=== PATIENT | female | born 1975 | race American Indian/Alaskan Native ===

== ENCOUNTER 2016-10-06 10:41 | Emergency (ER) | payer MEDICAID ==
[2016-10-06] MEDS ORDERED: CATAPRES ONE (11:43)
[2016-10-06] MEDS ORDERED: APRESOLINE PO ONE (18:55)
[2016-10-06 19:37] LABS: Basophils % (Auto) 0.5 % (0.0-1.8); Eosinophils % (Auto) 0.6 % (0.0-4.3); Hematocrit 36.7 % (30.3-42.9); Hemoglobin 11.4 gm/dl (10.1-14.3); Mean Corpuscular HGB Conc 31 % (30-34); Platelet Count 258 K/mm3 (140-440); Red Blood Count 5.38 M/mm3 (3.65-5.03); Red Cell Distribution Width 18.2 % (13.2-15.2); White Blood Count 5.4 K/mm3 (4.5-11.0)
[2016-10-06 19:45] LABS: Mean Corpuscular Hemoglobin 21 pg (28-32); Mean Corpuscular Volume 68 fl (79-97)
[2016-10-06 19:57] LABS: Blood Urea Nitrogen 9 mg/dL (7-17); Calcium 9.3 mg/dL (8.4-10.2); Carbon Dioxide 23 mmol/L (22-30); Chloride 101.8 mmol/L (98-107); Glucose 91 mg/dL (65-100); Potassium 3.7 mmol/L (3.6-5.0); Sodium 139 mmol/L (137-145)
[2016-10-06 20:08] LABS: Anion Gap 18 mmol/L
[2016-10-06] MEDS ORDERED: TYLENOL PO ONE (20:42)
[2016-10-06] MEDS ORDERED: REGLAN IV ONE (20:42)
--- NOTE | 2016-10-06 20:43 | Emergency Department Report ---
ED Headache HPI - General Time Seen by Provider: 10/06/16 20:41 - History of Present Illness Initial Comments: 41-year-old female past medical history hypertension presents with complaint of headache and episode of hypertension at work today. Patient denies any palpitations shortness of breath no nausea no vomiting no blurry vision. Patient states that headache is frontal throbbing pulsatile. Waxing and waning throughout the course of the day gradually not sudden onset. Allergies/Adverse Reactions: Allergies No Known Allergies Allergy (Unverified 07/02/14 10:33) Home Medications: Ambulatory Orders amLODIPine [Norvasc] 5 mg PO DAILY #30 tablet 07/05/14 Acetaminophen [Acetaminophen TAB] 500 mg PO Q6HR PRN #30 tablet 10/06/16 Hydrochlorothiazide [HCTZ] 25 mg PO QDAY #30 tablet 10/06/16 Metoprolol [Lopressor TAB] 12.5 mg PO BID #30 tablet 10/06/16 amLODIPine [Norvasc] 10 mg PO DAILY #30 tab 10/06/16 ED Review of Systems ROS: Stated complaint: Other details as noted in HPI ED Past Medical Hx - Past Medical History Hx Hypertension: Yes Hx Congestive Heart Failure: No Hx Diabetes: No Hx Asthma: No Hx COPD: No - Social History Smoking Status: Never Smoker - Medications Home Medications: Home Medications Medication Instructions Recorded Confirmed Last Taken Type amLODIPine [Norvasc] 5 mg PO DAILY #30 tablet 07/05/14 Unknown Rx Acetaminophen [Acetaminophen TAB] 500 mg PO Q6HR PRN #30 tablet 10/06/16 Unknown Rx Hydrochlorothiazide [HCTZ] 25 mg PO QDAY #30 tablet 10/06/16 Unknown Rx Metoprolol [Lopressor TAB] 12.5 mg PO BID #30 tablet 10/06/16 Unknown Rx amLODIPine [Norvasc] 10 mg PO DAILY #30 tab 10/06/16 Unknown Rx ED Physical Exam - General General appearance: alert, in no apparent distress - Head Head exam: Present: atraumatic, normocephalic - Eye Eye exam: Present: normal appearance, PERRL, EOMI - ENT ENT exam: Present: mucous membranes moist - Neck Neck exam: Present: normal inspection - Respiratory Respiratory exam: Present: normal lung sounds bilaterally. Absent: respiratory distress - Cardiovascular Cardiovascular Exam: Present: regular rate, normal rhythm. Absent: systolic murmur, diastolic murmur, rubs, gallop - GI/Abdominal GI/Abdominal exam: Present: soft, normal bowel sounds - Extremities Exam Extremities exam: Present: normal inspection - Back Exam Back exam: Present: normal inspection - Neurological Exam Neurological exam: Present: alert, oriented X3, CN II-XII intact - Expanded Neurological Exam Expanded Patient oriented to: Present: person, place, time Speech: Present: fluid speech Cranial nerves: EOM's Intact: Normal, Gag Reflex: Normal, Tongue Deviation: Normal, Nystagmus: Normal, Facial Sensation: Normal, Facial Palsy with Forehead Movement: Normal, Facial Palsy without Forehead Movement: Normal Cerebellar function: Finger to Nose: Normal, Heel to Shah: Normal, Romberg: Normal Upper motor neuron: Matthieu Neglect: Normal, Pronator Drift: Normal, Babinski Sign : Normal, Sensory Extinction: Normal Sensory exam: Upper Extremity Light Touch: Normal, Upper Extremity Pin Prick: Normal, Upper Extremity Temperature: Normal, UE 2 Point Discrimination: Normal, Lower Extremity Light Touch: Normal, Lower Extremity Pin Prick: Normal, Lower Extremity Temperature: Normal, LE 2 Point Discrimination: Normal Motor strength exam: RUE: 5, LUE: 5, RLE: 5, LLE: 5 DTR: bicep (R): 3+, bicep (L): 3+, tricep (R): 3+, tricep (L): 3+, knee (R): 3+ , knee (L): 3+, ankle (R): 3+, ankle (L): 3+ Best Eye Response (Ophir): (4) open spontaneously Best Motor Response (Arnaldo): (6) obeys commands Best Verbal Response (Ophir): (5) oriented Arnaldo Total: 15 - Psychiatric Psychiatric exam: Present: normal affect, normal mood - Skin Skin exam: Present: warm, dry, intact, normal color. Absent: rash ED Course Vital Signs 10/06/16 10/06/16 10/06/16 19:57 21:24 21:35 Temperature 98.2 F Pulse Rate 103 H 74 Respiratory 20 18 Rate Blood Pressure 132/90 Blood Pressure 171/99 [Left] O2 Sat by Pulse 100 18 L Oximetry 10/06/16 22:18 Temperature Pulse Rate 70 Respiratory 18 Rate Blood Pressure Blood Pressure 137/91 [Left] O2 Sat by Pulse 99 Oximetry ED Medical Decision Making - Lab Data Result diagrams: 10/06/16 19:23 10/06/16 19:23 - Medical Decision Making A/P: Headache, hypertension 1-BMP, CBC, EKG within normal limits 2-after BP control with hydralazine BP normalized. Patient now asymptomatic patient states the headache is 2 out of 10 compared to 10 out of 10 when she came in. Patient denies any chest pain or shortness of breath no palpitations no nausea no vomiting no blurry vision no paresthesias in upper or lower extremities or face. No signs of facial paresthesias, no slurred speech. Strength 5 out of 5 all extremities upper and lower. 3-I discussed case with Dr. Ragsdale 4-patient states she is not taking any of her blood pressure medications one week, is requesting refill for her hydrochlorothiazide metoprolol and amlodipine. All provide enough for one month and referred patient to primary care. 5-patient given strict instructions by me to report back to the ED if she experiences headache with elevated or significantly lowered blood pressure. I advised her about the symptoms as stated above. Critical care attestation.: If time is entered above; I have spent that time in minutes in the direct care of this critically ill patient, excluding procedure time. ED Disposition Clinical Impression: Headache Qualifiers: Headache type: tension-type Headache chronicity pattern: acute headache Intractability: not intractable Qualified Code(s): G44.209 - Tension-type headache, unspecified, not intractable Hypertension Qualifiers: Hypertension type: other secondary hypertension Qualified Code(s): I15.8 - Other secondary hypertension Disposition: DISCHARGED TO HOME OR SELFCARE Is pt being admited?: No Does the pt Need Aspirin: No Condition: Stable Instructions: Acute Headache (ED), Hypotension (ED), Hypertension (ED) Additional Instructions: I advised patient to call for primary care follow-up as soon as possible Prescriptions: Acetaminophen [Acetaminophen TAB] 500 mg PO Q6HR PRN #30 tablet PRN Reason: Headache amLODIPine [Norvasc] 10 mg PO DAILY #30 tab Hydrochlorothiazide [HCTZ] 25 mg PO QDAY #30 tablet Metoprolol [Lopressor TAB] 12.5 mg PO BID #30 tablet Referrals: PRIMARY CARE, [Primary Care Provider] - 3-5 Days [facility] [Outside] - 3-5 Days BERNIE MOSS MD [Referring] - 3-5 Days Forms: Work/School Release Form(ED) Time of Disposition: 22:20
[2016-10-06] MEDS ORDERED: NACL 0.9% 500 ML 500 ML IV ONE (20:50)
[2016-10-06 22:24] VITALS: BP 132/90
== END 2016-10-06 22:37 | disposition home or self-care (01) ==
LOC: ED 10:41
DX: G44.209 Tension-type headache, unspecified, not intractable (principal); I15.8 Other secondary hypertension
CPT/HCPCS: 36415; 80048; 85025; 93005; 93010; 96361; 96374; 99283; J2765; J7040

== ENCOUNTER 2018-01-27 13:08 | Outpatient (CLI) | payer BC ==
--- NOTE | 2018-02-01 12:37 | Mammography Report ---
Bilateral mammogram: No previous studies available. CAD study utilized. Findings: Predominance of adipose tissue bilaterally. Focal architectural distortion approximate 12:00 position left breast. Asymmetric ill-defined 4 mm density upper outer posterior left breast. No microcalcifications. Normal axilla. Impression: Focal architectural distortion throughout 12:00 position with focal asymmetry outer posterior left breast. Comparison with previous studies is recommended. If previous studies are not available spot mag and sonographic examination advised. BI-RADS CATEGORY: 0 = Needs additional imaging evaluation ACR BI-RADS MAMMOGRAPHIC CODES: 0 = Needs additional imaging evaluation; 1 = Negative; 2 = Benign; 3 = Probably benign; 4 = Suspicious; 5 = Malignant; 6 = Known biopsy-proven malignancy COMMENT: 1. Dense breast tissue, i.e., adenosis, fibrocystic changes, etc., may obscure an underlying neoplasm. 2. Approximately 10% of cancers are not detected with mammography. 3. A negative mammography report should not delay biopsy if a clinically suspicious mass is present. COMMENT: Patient follow-up letters are generated in [employer].
== END 2018-01-27 13:09 | disposition home or self-care (01) ==
LOC: MAMMO 13:08
PROVIDERS: ATTEND Obstetrics & Gynecology
DX: Z12.31 Encounter for screening mammogram for malignant neoplasm of breast (principal)
CPT/HCPCS: 77067

== ENCOUNTER 2018-03-24 08:40 | Emergency (ER) | payer BC ==
[2018-03-24] MEDS ORDERED: APRESOLINE IV ONE (10:25)
[2018-03-24 10:50] LABS: Hemoglobin 14.5 gm/dl (10.1-14.3); Mean Corpuscular HGB Conc 33 % (30-34); Mean Corpuscular Hemoglobin 27 pg (28-32); Mean Corpuscular Volume 81 fl (79-97); Platelet Count 303 K/mm3 (140-440); Red Blood Count 5.46 M/mm3 (3.65-5.03); Red Cell Distribution Width 16.4 % (13.2-15.2)
[2018-03-24 11:10] LABS: BUN/Creatinine Ratio 20; Blood Urea Nitrogen 20 mg/dL (7-17); Calcium 9.4 mg/dL (8.4-10.2); Hemolysis Index 12
[2018-03-24] MEDS ORDERED: TYLENOL #3 PO ONE (11:35)
--- NOTE | 2018-03-24 11:45 | Emergency Department Report ---
HPI - General Chief Complaint: High BP Time Seen by Provider: 03/24/18 10:17 - HPI HPI: The patient is a 26-year-old female who presents for evaluation of headache. The patient has a history of poorly controlled hypertension. The patient reports constant generalized headache for the past 5-6 days, currently 9/10 in severity, throbbing in quality, exacerbated with position changes and while sounds. The patient denies fever, head injury, neck pain, neck stiffness, vision or hearing changes, smell or taste changes, paresthesias, facial drooping , slurred speech, seizure-like activity, urine or bowel incontinence or retention, or other focal neurological deficit. ED Past Medical Hx - Past Medical History Hx Hypertension: Yes Hx Congestive Heart Failure: No Hx Diabetes: No Hx Asthma: No Hx COPD: No - Surgical History Past Surgical History?: No - Social History Smoking Status: Never Smoker Substance Use Type: None - Medications Home Medications: Home Medications Medication Instructions Recorded Confirmed Last Taken Type Mtyzx-Vzyqy-Owfb 10-160-12.5MG 1 tab PO DAILY 03/24/18 03/24/18 03/24/18 07:45 History Lisinopril [Zestril TAB] 5 mg PO QDAY #31 tablet 03/24/18 Unknown Rx ED Review of Systems ROS: Stated complaint: HYPERTENSIVE Other details as noted in HPI Constitutional: denies: fever ENT: denies: throat or neck pain Respiratory: denies: cough, shortness of breath Cardiovascular: denies: chest pain Endocrine: denies unexplained weight loss or gain Gastrointestinal: denies: abdominal pain, nausea Genitourinary: denies: dysuria Musculoskeletal: denies: leg swelling Skin: denies: rash Neurological: reports headache Hematological/Lymphatic: denies: easy bleeding or easy bruising Psych: denies sadness or hopelessness Physical Exam - Physical Exam Vital Signs: Vital Signs 03/24/18 03/24/18 03/24/18 08:49 08:53 10:16 Temperature 98.6 F Pulse Rate 78 Respiratory 16 Rate Blood Pressure 183/122 Blood Pressure 186/116 [Left] O2 Sat by Pulse 100 100 Oximetry 03/24/18 03/24/18 03/24/18 10:21 10:30 10:46 Temperature Pulse Rate 82 Respiratory 18 Rate Blood Pressure Blood Pressure 177/107 [Left] O2 Sat by Pulse 98 97 96 Oximetry 03/24/18 11:00 Temperature Pulse Rate Respiratory Rate Blood Pressure 162/93 Blood Pressure [Left] O2 Sat by Pulse 98 Oximetry Physical Exam: General: well-nourished, well-developed, no acute distress Head: Normocephalic, atraumatic Eyes: normal sclera ENT: Mucous membranes are pink and moist Neck: trachea midline, neck supple, No neck stiffness, no cervical adenopathy Respiratory: Breath sounds equal bilaterally, no wheezing, rales, or rhonchi Cardio: S1 and S2 present, no murmurs, rubs, gallops, capillary refill is brisk Abdomen: Normoactive bowel sounds, soft abdomen, no rigidity, no guarding or rebound tenderness Chest WALL/Back: No tenderness to palpation of the chest wall, no CVA tenderness with percussion Musc: No pitting edema Skin: No rash Neuro: alert oriented x4, normal cognition, speech normal, PERRL, EOM intact, no facial drooping, no uvula or tongue deviation on protrusion, no deficit with rotation of neck or shoulder shrug, no obvious gross motor deficit in the upper or lower extremities with flexion or extension at the shoulder, elbow, wrist, hip, knee, or ankle bilaterally, no obvious gross sensation deficit to crude touch or 2 pt discrimination, 2+ symmetric reflexes on DTR testing, no coordination deficit with sntofr-eb-ancy or fkdu-le-ppsh testing, Babinski downgoing, romberg negative, patient able to to ambulate without abnormal gait Psych: Normal affect ED Course Vital Signs 03/24/18 03/24/18 03/24/18 08:49 08:53 10:16 Temperature 98.6 F Pulse Rate 78 Respiratory 16 Rate Blood Pressure 183/122 Blood Pressure 186/116 [Left] O2 Sat by Pulse 100 100 Oximetry 03/24/18 03/24/18 03/24/18 10:21 10:30 10:46 Temperature Pulse Rate 82 Respiratory 18 Rate Blood Pressure Blood Pressure 177/107 [Left] O2 Sat by Pulse 98 97 96 Oximetry 03/24/18 11:00 Temperature Pulse Rate Respiratory Rate Blood Pressure 162/93 Blood Pressure [Left] O2 Sat by Pulse 98 Oximetry ED Medical Decision Making - Lab Data Result diagrams: 03/24/18 10:30 03/24/18 10:30 - Medical Decision Making The patient was seen and examined by myself. The patient is placed on a pvc monitor and continuous pulse ox. On initial evaluation, the patient was found to be in no distress. The patient is given a tablet of total [address] scan the head is obtained and is negative for acute intracranial disease process. Lab results are not concerning including normal renal function and negative test. The patient was reevaluated and reported that their symptoms were markedly improved. The patient is stable for discharge with outpatient follow-up. The patient is given follow-up and return instructions. The patient expressed understanding and agreed with the plan. The patient is discharged in stable condition. Critical care attestation.: If time is entered above; I have spent that time in minutes in the direct care of this critically ill patient, excluding procedure time. ED Disposition Clinical Impression: Hypertensive urgency, Dehydration, Acute non intractable tension-type headache Disposition: DC-01 TO HOME OR SELFCARE Is pt being admited?: No Does the pt Need Aspirin: No Condition: Stable Instructions: Hypertension (ED), Chronic Hypertension (ED), Migraine Headache ( ED) Referrals: PRIMARY CARE [Primary Care Provider] - 3-5 Days [facility] [Outside] - 3-5 Days Time of Disposition: 13:09
[2018-03-24 12:00] LABS: Eosinophils % (Manual) 0 % (0.0-4.3); Total Cells Counted 100
[2018-03-24 12:01] LABS: Anisocytosis 1+; Platelet Estimate Cons
--- NOTE | 2018-03-24 12:11 | Cat Scan Report ---
CT HEAD WITHOUT CONTRAST: HISTORY: Headache. TECHNIQUE: Sequential 2.5mm CT images. COMPARISON: none. FINDINGS: Cerebral Parenchyma: Within normal limits. Cerebellum: Within normal limits. Brainstem: Within normal limits. Ventricles: Normal. Sella: Normal. Extra-axial spaces: Normal. Basal Cisterns: Normal. Intracranial Hemorrhage: None. Midline Shift: None. Calvarium: Normal. Sinuses: Normal. Mastoid Air Cells: Normal. Visualized Orbits: Normal. IMPRESSION: Cranial CT scan within normal limits.
[2018-03-24] MEDS ORDERED: NORMODYNE IV ONE (13:16)
[2018-03-24 13:19] VITALS: BP 142/82
== END 2018-03-24 13:45 | disposition home or self-care (01) ==
LOC: ED 08:40
DX: I16.0 Hypertensive urgency (principal); E86.0 Dehydration; G44.209 Tension-type headache, unspecified, not intractable; I10 Essential (primary) hypertension
CPT/HCPCS: 36415; 70450; 80048; 84703; 85007; 85025; 96374; 96375; 99284; J0360

== ENCOUNTER 2018-04-11 10:25 | Emergency (ER) | payer BC ==
[2018-04-11] MEDS ORDERED: TYLENOL ONE (13:39)
[2018-04-11] MEDS ORDERED: PERCOCET 5/325 PO ONE (14:06)
[2018-04-11] MEDS ORDERED: MOTRIN PO ONE (14:07)
--- NOTE | 2018-04-11 14:12 | Emergency Department Report ---
ED General Adult HPI - General Chief complaint: High BP Stated complaint: BLOOD PRESSURE/HEART RATE Time Seen by Provider: 04/11/18 13:50 Source: patient Mode of arrival: Ambulatory Limitations: No Limitations - History of Present Illness Initial comments: This is a 43-year-old female who is not known to this provider previously. Her primary care doctor is Dr. Mccauley Her strategic intelligence officer, whom she has seen once is with [facility]. She has a follow -up appointment with her strategic intelligence officer on Tuesday. She presents to the ER with multiple complaints. Her first complaint is headache. The headache is frontal , bitemporal. It has been present for the past 2-3 days. It is not sudden or thunderclap in nature and did not reach maximal intensity within an hour. It is not the worst headache of her life. She reports a worse headache last month. The patient was seen in the ER last month for similar symptoms, had an extensive workup and was discharged appropriately. The patient also reports that her blood pressures and elevated. She reports that she is currently taking accommodation tablet, amlodipine and valsartan HCTZ, 10-160-12.5. She reports compliance with this medication, and denies dietary indiscretions. She denies caffeine ingestion, and stimulant ingestion. She has been having high blood pressure documented this hospital since 2013. She denies symptoms suggestive of sleep apnea. To me, she denies chest pain, abdominal pain, shortness of breath, weakness, numbness, ataxia, although she does endorse that she feels anxious. She indicates that she is not . -: Gradual Location: head Severity scale (0 -10): 9 Quality: aching Consistency: intermittent Improves with: medication Worsens with: other (exposure to light, exposure to sound) Associated Symptoms: headaches - Related Data Home Medications Medication Instructions Recorded Confirmed Last Taken Btbxa-Jcfgl-Hagg 10-160-12.5MG 1 tab PO DAILY 03/24/18 03/24/18 03/24/18 07:45 Previous Rx's Medication Instructions Recorded Last Taken Type Lisinopril [Zestril TAB] 5 mg PO QDAY #31 tablet 03/24/18 Unknown Rx Acetaminophen [Tylenol Arthritis] 650 mg PO Q6HR PRN #30 tablet.er 04/11/18 Unknown Rx Amlodipine/Valsartan/Hcthiazid 1 each PO QDAY #30 tablet 04/11/18 Unknown Rx [Ifinr-Bnonb-Tmto 10-320-25 mg] Ibuprofen [Motrin] 600 mg PO Q8H PRN #30 tablet 04/11/18 Unknown Rx Allergies Allergy/AdvReac Type Severity Reaction Status Date / Time No Known Allergies Allergy Unverified 07/02/14 10:33 ED Review of Systems ROS: Stated complaint: BLOOD PRESSURE/HEART RATE Other details as noted in HPI Constitutional: denies: malaise Eyes: denies: vision change ENT: denies: epistaxis Respiratory: denies: cough Cardiovascular: denies: chest pain Gastrointestinal: denies: abdominal pain Neurological: headache. denies: weakness Psychiatric: anxiety ED Past Medical Hx - Past Medical History Previous Medical History?: Yes Hx Hypertension: Yes Hx Congestive Heart Failure: No Hx Diabetes: No Hx Asthma: No Hx COPD: No - Surgical History Past Surgical History?: No - Social History Smoking Status: Never Smoker Substance Use Type: None - Medications Home Medications: Home Medications Medication Instructions Recorded Confirmed Last Taken Type Zppxy-Wblal-Asxv 10-160-12.5MG 1 tab PO DAILY 03/24/18 03/24/18 03/24/18 07:45 History Lisinopril [Zestril TAB] 5 mg PO QDAY #31 tablet 03/24/18 Unknown Rx Acetaminophen [Tylenol Arthritis] 650 mg PO Q6HR PRN #30 tablet.er 04/11/18 Unknown Rx Amlodipine/Valsartan/Hcthiazid 1 each PO QDAY #30 tablet 04/11/18 Unknown Rx [Ndmcc-Ijbts-Mlbk 10-320-25 mg] Ibuprofen [Motrin] 600 mg PO Q8H PRN #30 tablet 04/11/18 Unknown Rx ED Physical Exam - General Limitations: No Limitations General appearance: alert, in no apparent distress - Head Head exam: Present: atraumatic, normocephalic - Eye Eye exam: Present: normal appearance, PERRL, EOMI, other (visual acuity intact to finger counting, color perception, reading at a close distance). Absent: nystagmus - ENT ENT exam: Present: normal exam, normal orophraynx, mucous membranes moist, normal external ear exam - Neck Neck exam: Present: normal inspection, full ROM. Absent: tenderness, meningismus - Respiratory Respiratory exam: Present: normal lung sounds bilaterally. Absent: respiratory distress - Cardiovascular Cardiovascular Exam: Present: normal rhythm, tachycardia, normal heart sounds. Absent: systolic murmur, diastolic murmur, rubs, gallop - GI/Abdominal GI/Abdominal exam: Present: soft, normal bowel sounds. Absent: distended, tenderness, guarding, rebound, pulsatile mass - Extremities Exam Extremities exam: Present: normal inspection, full ROM, normal capillary refill , other (2+ pulses noted in the bilateral upper, lower extremities. Compartments soft. No long bony tenderness. The pelvis is stable.). Absent: tenderness, pedal edema, joint swelling, calf tenderness - Back Exam Back exam: Present: normal inspection, full ROM. Absent: tenderness, CVA tenderness (R), paraspinal tenderness, vertebral tenderness - Neurological Exam Neurological exam: Present: alert, oriented X3, CN II-XII intact, normal gait ( normal dlxz-kr-bini. Negative pronator drift. Normal gait. Normal tandem gait. Negative Romberg.), other (Extraocular movements intact. Tongue midline. No facial droop. Facial sensation intact to light touch in the V1, V2 , V3 distribution bilaterally. 5 and 5 strength in 4 extremities.. Sensation is intact to light touch in 4 extremities.). Absent: motor sensory deficit - Psychiatric Psychiatric exam: Present: anxious - Skin Skin exam: Present: warm, dry, intact, normal color. Absent: rash ED Course Vital Signs 04/11/18 04/11/18 10:59 13:57 Temperature 98.9 F Pulse Rate 104 H 104 H Respiratory 18 18 Rate Blood Pressure 166/106 185/106 O2 Sat by Pulse 100 99 Oximetry - Reevaluation(s) Reevaluation #1: 04/11/18 14:20 The patient's elevated blood pressure is appreciated. It has been present since 2013. Please reference the [employer] clinical policy and hypertension that is not symptomatic. ED Medical Decision Making - Lab Data Vital Signs 04/11/18 04/11/18 10:59 13:57 Temperature 98.9 F Pulse Rate 104 H 104 H Respiratory 18 18 Rate Blood Pressure 166/106 185/106 O2 Sat by Pulse 100 99 Oximetry - EKG Data -: EKG Interpreted by Ok EKG shows normal: sinus rhythm Rate: normal - EKG Data When compared to previous EKG there are: no significant change 04/11/18 14:11 Normal sinus, 87 beats per minute, normal axis, QTC prolonged, nonspecific T- wave abnormalities, abnormal EKG, not a STEMI, appears unchanged from prior from oct 2016 - Medical Decision Making Differential diagnosis, including not limited to: Migraine headache, tension headache, cluster headache, poor controlled hypertension Assessment and plan: 43-year-old female with acute on chronic headache. She also has acute on chronic hypertension and elevated blood pressure. Patient has a GCS of 15, with an NIH score of 0, walks with a steady gait, and has no cerebellar signs. Patient had a negative CT scan of the brain last month. Her neurologic examination is within normal limits at this time. For history and physical are not consistent with subarachnoid hemorrhage. her physical and history are not consistent with stroke. As a courtesy I have contacted her primary strategic intelligence officer, Dr. Salmreon, who recommended increasing her combination medication to 10 mg/320 mg/25 mg. The patient indicates she is going to follow-up on Tuesday. Critical care attestation.: If time is entered above; I have spent that time in minutes in the direct care of this critically ill patient, excluding procedure time. ED Disposition Clinical Impression: Headache, Elevated blood pressure reading Disposition: - TO HOME OR SELFCARE Is pt being admited?: No Does the pt Need Aspirin: No Condition: Good Instructions: Hypertension (ED) Additional Instructions: Take the medications as needed/directed. Follow-up with your private strategic intelligence officer on Tuesday as directed. Avoid consumption of caffeinated substances and beverages. Return to the ER right away with any pain, worsening pain, migration of pain, fevers, chills, lethargy, irritability, projectile vomiting, change in mental status, confusion, inability to tolerate liquid feeds. Please note that long-term complications of hypertension and elevated blood pressure includes stroke, heart attack, disability, paralysis, loss of quality of life. Referrals: PRIMARY CARE, [Primary Care Provider] - 3-5 Days JAMEL DUNCAN MD [Staff Physician] - 3-5 Days
[2018-04-11 14:54] VITALS: BP 157/89
== END 2018-04-11 14:52 | disposition home or self-care (01) ==
LOC: ED 10:25
DX: R51 Headache (principal); R03.0 Elevated blood-pressure reading, without diagnosis of hypertension; F41.9 Anxiety disorder, unspecified; I10 Essential (primary) hypertension
CPT/HCPCS: 93005; 93010; 99282